=== PATIENT | female | born 1950 | race Caucasian/White ===

== ENCOUNTER 2017-04-16 13:52 | Inpatient (IN) | payer MEDICARE, OTHER ==
--- NOTE | ~2017-04-16 | HP ---
History And Physical [place] [facility] [place]. [address] NAME: NANCY MACKAY : 52 STATUS : ADM IN PAT#: [id number] AGE: 66 ADM/REG DATE : 04/16/17 MR#: [id number] REPORT SERV DATE: 04/16/17 DICTATED BY: JO LAZARO DATE: 04/16/17 REPORT STATUS : Draft TRANSCRIBED BY: MODL DATE: 04/16/17 DATE OF ADMISSION: 04/16/2017 IDENTIFYING DATA: A 66-year-old white female, whose PCP is Dr. Dee Daniels; Pulmonary, Dr. Crowell; Cardiology, Dr. Guallpa; GI, Dr. Strickland. CHIEF COMPLAINT: Shortness of breath. HISTORY OF PRESENT ILLNESS: This history of present illness is obtained by talking with the patient as well as daughter and son-in-law at the bedside as well as with the ER physician, Dr. Elijah Desai, and looking at the ER chart as well as [employer] and [employer]. The patient has had multiple hospitalizations here for a similar problem with hypercapnic hypoxic respiratory failure. Her last two hospitalizations in September 2016 and December 2016 each included ventilator-dependent respiratory failure. The patient has a trilogy that she uses at home any time she sleeps, she also wears oxygen normally 4 liters/minute nasal cannula. Family states this week she went to her PCP. She was diagnosed with a UTI. She was given Macrobid. They state that they were called back today to let them know that this is a resistant organism and they were going to adjust her antibiotic; however, home nurse noticed the patient was more short of breath, more drowsy, and the family agrees and the family had been titrating her oxygen up to a higher FiO2, all the way up to 6 liters. They brought her to the emergency room where she was found to be hypercapnic with respiratory acidosis and hypoxia, and we were asked to see her and care for her. REVIEW OF SYSTEMS: On review of systems, she states she has fever, but it is at most 100, most of the time 99. She claims increased cough and increased sputum production. She states that the sputum is yellow. She also has some atypical chest pain. She has chronic abdominal pain that she states is consistent with gastroparesis. She has chronic nausea. She states she occasionally notices blood when she wipes after a bowel movement. She has some ankle edema. She has some rash occasionally on her face and she states she has been much more nervous lately. She denies sore throat or diarrhea. She has had some vomiting. ALLERGIES: SHE CLAIMS ALLERGIES TO ALL ANTIDEPRESSANTS, BUTTER, PEANUT BUTTER, HALDOL, REGLAN, ROCEPHIN, MORPHINE, PENICILLIN, SULFA, LITHIUM, PROPOXYPHENE, ASPIRIN, AMITRIPTYLINE, FLUOXETINE, AND METHADONE. PAST MEDICAL HISTORY: She denies any history of myocardial infarction or congestive heart failure, stroke, seizure, liver disease, or cancer. She has significant obesity with obesity hypoventilation and obstructive sleep apnea as described above. She has hypertension. She has very severe bipolar disorder with schizoaffective disorder and episodes of psychosis when she does not take her Seroquel. She has the above-described oxygen-dependent COPD. When she was here in December 2015, she had C. difficile colitis treated with an extended course of vancomycin. History And Physical [address] [address] NAME: NANCY MACKAY : 52 STATUS : ADM IN PAT#: [id number] AGE: 66 ADM/REG DATE : 04/16/17 MR#: [id number] REPORT SERV DATE: 04/16/17 DICTATED BY: JO LAZARO DATE: 04/16/17 REPORT STATUS : Draft TRANSCRIBED BY: RUBA DATE: 04/16/17 She has chronic pain in back, neck, and fibromyalgia for which she takes opiates, Cymbalta, and gabapentin. She has a history of neurogenic bladder for which she has a Hart catheter that is chronic and indwelling and changed every three to four weeks. She has diabetes mellitus with gastroparesis, however, her last A1c was 5.9 on 12/22/2016. She has a history of chronic kidney disease, stage III. She has hypothyroidism, anemia of chronic disease, hiatal hernia, and previous peptic ulcer when she was a teenager. She also states that she had a DVT long ago on a pulmonary embolism and she states that when she was in the hospital here last, they put her on Xarelto because of "irregular heart rhythm." HOME MEDICATIONS: Albuterol nebulized and handheld p.r.n.; Xanax 0.5 mg t.i.d.; BuSpar 15 mg b.i.d.; vitamin B12 1000 mcg injected IM every month; Dexilant 60 mg b.i.d.; Voltaren 1% topical gel b.i.d. p.r.n.; Cymbalta 90 mg daily; Urispas 100 mg t.i.d.; Breo Ellipta 100/25 one puff daily; gabapentin 300 mg b.i.d.; Synthroid 88 mcg daily; Linzess 290 mcg daily before breakfast; methenamine 1 g b.i.d.; metoprolol 25 mg b.i.d.; Singulair 10 mg daily; Movantik 25 mg daily; Macrobid 100 mg p.o. b.i.d., started this week for the UTI; Mycostatin topical under skin folds; Percocet 10/325 q.6 hours p.r.n. pain; KCl 10 mEq daily; Phenergan 50 mg p.o. q.4 hours p.r.n. nausea; Seroquel 200 mg at bedtime and 50 mg at noon; Xarelto 20 mg with supper; Requip 3 mg twice a day; VESIcare 10 mg daily; Carafate 1 g a.c. and h.s.; Demadex 20 mg daily; and Incruse Ellipta one puff inhaled daily. PAST SURGICAL HISTORY: She has had cholecystectomy, total abdominal hysterectomy, hernia repair, cataract surgery, left arm fracture repair, and bladder suspension. SOCIAL HISTORY: She has more than 119-iocq-fary history of smoking. She used to smoke four packs per day. She quit 15 years ago. She lives with a daughter and son-in-law who her at bedside. She gets around primarily by transferring from bed to wheelchair, just by pivoting, she does not really walk. FAMILY HISTORY: Mother had both ovarian as well as breast cancer. Father had a subdural hematoma. Siblings with COPD and chronic kidney disease. DIAGNOSTIC DATA: Chest x-ray done as a single portable film in the emergency room today reveals a very shallow inspiratory size with crowding of the lung markings, difficult to tell if there is any actual interstitial infiltrate and it is fairly similar to previous chest x-rays per my interpretation. EKG done today at 1350 hours reveals normal sinus rhythm and a normal EKG to my interpretation. Arterial blood gas done on 50% oxygen BiPAP 16/6 pH 7.29, pCO2 of 75, PO2 of 63, and bicarbonate 34.8. Prior to that point of care, blood gas done here in the emergency room showed pH 7.24, pCO2 of 93, PO2 was less than 60, and bicarbonate 40.2. Sodium 138, potassium 4.1, chloride 100, CO2 is 41, BUN 14, creatinine 1.41, glucose 144, and albumin is 3.4. Her white count is 10.9, hemoglobin 9.1, MCHC is microcytic at 28.6, RDW elevated at 16.7, and platelets 158,000. PHYSICAL EXAMINATION: VITAL SIGNS: Temperature is 98; pulse 90; respirations initially 38, currently 28; blood pressure 130/70; and O2 saturation initially 87% on 4 liters, currently 94% on 50% BiPAP. GENERAL: A well-developed, older female, who appears with moderate respiratory discomfort. HEENT: Head is atraumatic. Pupils are equal, round, and reactive to light. Extraocular History And Physical [address] [address] NAME: NANCY MACKAY : 52 STATUS : ADM IN [facility]#: [id number] AGE: 66 ADM/REG DATE : 04/16/17 MR#: [id number] REPORT SERV DATE: 04/16/17 DICTATED BY: JO LAZARO DATE: 04/16/17 REPORT STATUS : Draft TRANSCRIBED BY: MODL DATE: 04/16/17 motions are intact. No scleral icterus noted. Ears, externally unremarkable. No inflammatory changes noted. Normal hearing. Nose, noninflamed externally. Septum midline. Nares patent. Mouth is moist. I cannot really see the back of her throat because she has BiPAP on. NECK: Supple. No lymph node or thyroid enlargement. The carotids have good pulses. No bruits. LUNGS: Shallow inspiratory size. Prolonged expiratory phase. Reduced air flow. HEART: Regular without gallop, click, murmur, or rub. ABDOMEN: Obese. Bowel sounds positive. Soft, nondistended, and nontender. No masses. No organomegaly. EXTREMITIES: Warm. No clubbing. No cyanosis. No edema. No actively inflamed skin or joints. NEUROLOGIC: She is mildly lethargic, but she arouses to tactile and verbal stimulation and she can hold a fairly good conversation until I stop with stimulation and then she gets a bit drowsy. Her motor strength is 2/5 in all four extremities. No Babinski. No clonus noted. Cranial nerves II through XII are grossly normal. ASSESSMENT: 1. Acute on chronic hypoxic hypercapnic respiratory failure in a patient who underwent ventilator-dependent respiratory failure in September 2016 and December 2016, which were her last two hospitalizations here. 2. Acute exacerbation of oxygen-dependent chronic obstructive pulmonary disease, now on 4- 6 liters at home. 3. Obesity with obstructive sleep apnea and obesity hypoventilation with home trilogy machine and the family now reports that there has been some problem with that machine and they had agent for the company come out and work on it today. 4. Possible urinary tract infection versus asymptomatic bacteria. 5. Bipolar disorder with schizoaffective disorder with history of psychotic manifestations. 6. Possible melena per history. 7. See long past medical history. PLAN: 1. Admit to the IMCU. 2. BiPAP with adjustment upward to 18/6 and a followup blood gas. We will get her on nebulizers and prednisone. We will put her on some empiric antibiotic, which should cover the urinary tract as well and that would be Azactam. We will check stool guaiac. We will rule out an WI. We will check procalcitonin and urine antigens. In the presence of her daughter and son-in-law, she confirms that she still is full code. RSG/MODL Jo Lazaro M.D. History And Physical [address] [address] NAME: NANCY MACKAY : 52 STATUS : ADM IN [facility]#: [id number] AGE: 66 ADM/REG DATE : 04/16/17 MR#: [id number] REPORT SERV DATE: 04/16/17 DICTATED BY: JO LAZARO DATE: 04/16/17 REPORT STATUS : Draft TRANSCRIBED BY: MODL DATE: 04/16/17 / [id number] CC: Nate Granda M.D. Richard Sadowitz, M.D. C. Samuel Ledford, M.D.
--- NOTE | ~2017-04-16 | CN ---
Consultation Report [facility] [address]. [address] NAME: JEANIE YUSUF : 52 STATUS : ADM IN PAT#: [id number] AGE: 66 ADM/REG DATE : 04/16/17 MR#: [id number] REPORT SERV DATE: 04/19/17 DICTATED BY: BRYCE PADRON DATE: 04/19/17 REPORT STATUS : Draft TRANSCRIBED BY: MODL DATE: 04/19/17 CONSULTATION DATE OF CONSULTATION: 04/19/2017 CHIEF COMPLAINT: Respiratory failure. HISTORY OF PRESENT ILLNESS: Mrs. Jeanie Yusuf is a chronically ill 66-year-old white female with a past medical history significant for full COPD, chronic respiratory failure supported on home trilogy, and obesity hypoventilation, who presents to [facility] Emergency Room with complaints of worsening pulmonary status. It should be noted that Mrs. Yusuf was hospitalized as recently as December of this year when she was intubated for respiratory failure. Mrs. Yusuf is followed by Dr. Crowell for her outpatient pulmonary needs. She is on home oxygen at 3 to 4 L continuously. She is on a pulmonary regimen of albuterol, Breo Ellipta, Singulair, and Incruse Ellipta of which she is reportedly compliant. The patient quit smoking approximately 15 years ago. She smoked at least four packs a day for a period of 25 years. She does have known sleep apnea. She does have a home trilogy unit of which she is compliant by report. She is unable to quantify her exercise tolerance today. Again, the patient was hospitalized as recently as December of this year when she had an episode of hypoxemic hypercapnic respiratory failure, which resulted in intubation. She eventually improved and transitioned to home. More recently, she had been diagnosed with a urinary tract infection and was placed on antibiotics. She did have a visit from a home nurse which found the patient dyspneic and lethargic. During this time, she did have increasing oxygen requirements. Due to the concerns of her worsening pulmonary status, she was brought to [facility]'s emergency room. Upon arrival, she was found to have an oxygenation of 87% on 4 L. She had a systolic blood pressure of 130. Initial white blood cell count was 10,900. Her creatinine was 1.41. She did undergo arterial blood gas sampling which revealed a pH 7.24, PaCO2 of 93, PaO2 of less than 60, and a bicarb of 40.2. She was given IV Solu-Medrol, placed on antibiotics, and did receive BiPAP therapy with some improvement in her hypercapnia. She has had some increasing oxygen requirements since her transfer to the [facility]. For the aforementioned reasons, she has been referred to the Pulmonary Service for further assessment. Currently, Mrs. Yusuf is awake and mentating appropriately. She is supported on 15 L of supplemental oxygen with her sats in the low 90s. She denies any worsening, cough, or productive sputum. She does have some mild wheezing in her chest. She has had previous pneumonias. She does carry a diagnosis of COPD. The patient does have known diastolic dysfunction as well as some mild tricuspid regurg. She currently denies any murmurs, angina, or palpitations. In regard to constitutional Consultation Report [place] [id number] [facility] [place]. [address] NAME: JEANIE YUSUF : 52 STATUS : ADM IN [facility]#: [id number] AGE: 66 ADM/REG DATE : 04/16/17 MR#: [id number] REPORT SERV DATE: 04/19/17 DICTATED BY: BRYCE PADRON DATE: 04/19/17 REPORT STATUS : Draft TRANSCRIBED BY: RUBA DATE: 04/19/17 symptoms, she currently denies fever, chills, nausea, vomiting, chest pain, abdominal pain, or edema. PAST MEDICAL HISTORY: 1. Chronic hypoxemic hypercapnic respiratory failure, on home trilogy. 2. COPD. 3. Obesity hypoventilation syndrome. 4. Obstructive sleep apnea. 5. Narcotic dependence. 6. Anxiety. 7. Hypertension. 8. Bipolar disorder. 9. Schizoaffective disorder. 10.Fibromyalgia. 11.Diabetes mellitus. 12.Gastroparesis. 13.Restless legs syndrome. 14.Hypothyroidism. 15.Chronic kidney disease. PAST SURGICAL HISTORY: 1. Cholecystectomy. 2. Total abdominal hysterectomy. 3. Hernia repair. 4. Cataract surgery. 5. ORIF of left arm fracture. 6. Bladder surgery. FAMILY HISTORY: The patient denies family history of lung disease. SOCIAL HISTORY: The patient is . She has two children. TOBACCO/ALCOHOL: As previously mentioned, the patient quit smoking over 15 years ago, prior to this time, she smoked approximately four packs a day for a period of 25 years. She denies any recent alcohol or illicit drug use. MEDICATIONS: 1. Albuterol. 2. Xanax 0.5 mg. 3. Buspirone 15 mg. 4. Dexilant 60 mg. 5. Duloxetine 30 mg. 6. Breo Ellipta. 7. Gabapentin 300 mg. 8. Levothyroxine 88 mcg. Consultation Report [address] [address] NAME: JEANIE YUSUF : 52 STATUS : ADM IN PAT#: [id number] AGE: 66 ADM/REG DATE : 04/16/17 MR#: [id number] REPORT SERV DATE: 04/19/17 DICTATED BY: BRYCE PADRON DATE: 04/19/17 REPORT STATUS : Draft TRANSCRIBED BY: RUBA DATE: 04/19/17 9. Metoprolol 25 mg. 10.Montelukast 10 mg. 11.Oxycodone 10/325. 12.Potassium chloride 10 mEq. 13.Phenergan 25 mg. 14.Seroquel 200 mg. 15.Xarelto 20 mg. 16.Ropinirole 3 mg. 17.Torsemide 20 mg. 18.Incruse Ellipta. ALLERGIES: THE PATIENT HAS AN EXTENSIVE ALLERGY LIST INCLUDING CEFTRIAXONE, PENICILLINS, AND BACTRIM. PLEASE REVIEW THE CHART FOR MORE COMPLETE LIST OF ALLERGIES. REVIEW. REVIEW OF SYSTEMS: A complete review of systems was performed with pertinent positives and negatives contained within the body of the HPI. PHYSICAL EXAMINATION: VITAL SIGNS: Blood pressure is 134/60, heart rate 86, T-max is 99.2, respiratory rate is 28, SpO2 is 93% on 15 L nasal cannula. GENERAL: Mrs. Jeanie Yusuf is a chronically ill-appearing, 66-year-old white female, who is not currently exhibiting any signs of acute distress. SKIN: With appropriate texture and turgor. HEENT: Head, skull is normocephalic, atraumatic. Eyes, sclerae anicteric. Ears, auricles and tragus without pain to palpation. Nose, bilateral nasal patency. Throat, dentition noted. NECK: With significant redundant tissue. THORAX/LUNGS: Few scattered rhonchi and wheezes. CARDIOVASCULAR: Regular rate and rhythm. ABDOMEN: Soft. PERIPHERAL VASCULAR: No edema. MUSCULOSKELETAL: Full AROM and PROM in all joints. NEUROLOGIC: Cranial nerves 2 through 12 grossly intact. PSYCHIATRIC: The patient demonstrates good judgment and insight. ACCESSORY DATA: Reveals creatinine 1.3. BNP is 225.2. Arterial blood gas on a trilogy, pH 7.38, PaCO2 of 62, PaO2 of 72, bicarb of 36.1. White blood cell count of 7600, hemoglobin and hematocrit are 8.2 and 28.5. Procalcitonin is negative at 0.05. Chest x-ray reveals a possible right infiltrate versus edema. Echocardiogram in 2016 demonstrates a left ventricular ejection fraction estimated to be in the 60s. There was some mild diastolic dysfunction with mild left atrial dilatation. There Consultation Report [address] [place]. [address] NAME: JEANIE YUSUF : 52 STATUS : ADM IN [facility]#: [id number] AGE: 66 ADM/REG DATE : 04/16/17 MR#: [id number] REPORT SERV DATE: 04/19/17 DICTATED BY: BRYCE PADRON DATE: 04/19/17 REPORT STATUS : Draft TRANSCRIBED BY: RUBA DATE: 04/19/17 are signs consistent with mild tricuspid regurg with an estimated right systolic ventricular pressure of 50. IMPRESSION: 1. Acute on chronic hypoxemic, hypercapnic respiratory failure. 2. Acute exacerbation of chronic obstructive pulmonary disease. 3. Obesity hypoventilation syndrome/obstructive sleep apnea. PLAN: 1. At this time, the patient is currently being supported with her home trilogy with some improvement in her hypercapnia. She does have some worsening hypoxemia, which may be worsened due to her current volume status. We will have a discussion with the primary team about initiating some diuretics. We will write for Vapotherm should she have worsening oxygenation needs. The patient does wish to be a full code. 2. In regard to the patient's acute exacerbation of COPD, we will place her on a full armamentarium of nebulized medications as well as provide her with IV steroids. The aforementioned impression and plan has been discussed with Dr. Solis, who will follow further recommendations. We thank you for this consult and look forward to participating in the care of needs of Mrs. Jeanie Yusuf. GBS/MODL Bryce aPdron PA-C / [id number] CC: Nate Granda M.D.
--- NOTE | ~2017-04-16 | DS ---
Discharge Summary [facility] [address] [facility] [place]. [address] NAME: NANCY MACKAY : 52 STATUS : ADM IN [facility]#: [id number] AGE: 66 ADM/REG DATE : 04/16/17 MR#: [id number] REPORT SERV DATE: 04/23/17 DICTATED BY: Maricel MCCORMICK DATE: 04/23/17 REPORT STATUS : Draft TRANSCRIBED BY: RUBA DATE: 04/23/17 ADMISSION DATE: 04/16/2017 DISCHARGE DATE: 04/23/2017 DIAGNOSES AT DISCHARGE: Mrzip-it-faypfxf respiratory failure with hypoxia and hypercapnia, sleep apnea, obesity hypoventilation syndrome, end-stage chronic obstructive pulmonary disease, morbid obesity, bipolar disorder, chronic pain syndrome, insulin-requiring diabetes. CONSULTS: Pulmonology. PROCEDURES: None. BRIEF SUMMARY: A 66-year-old female with end-stage lung disease and long-standing bipolar disorder, and was admitted with recurrent respiratory failure. The patient was placed in intermediate care with intermittent BiPAP support. The patient was placed on aggressive pulmonary toilet and aggressive bronchodilator therapy. She slowly improved to her baseline and was able to tolerate her home trilogy settings. The patient was felt stable to discharge home on 04/23/2017 on her current medical therapy. The patient will not require antimicrobial therapy at this time. Lab work has been stable including a discharge BUN of 27 and a discharge creatinine of 1.53. 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 The patient will continue to have home health with physical therapy and RN to evaluate and treat. She will continue with her current home O2 and continue with her current trilogy with no adjustment in settings. Further recommendations pending outpatient followup. Of note, greater than 40 minutes was required to financial counselor the patient, prepare discharge forms, reconcile discharge medications. DICTATED BY: Maricel Mccormick M.D. HIXiang/RUBA Maricel Mccormick M.D. / [id number] CC: Maricel Mccormick M.D.
[~2017-04-16 13:52] MED LIST: *HOMEMEDS; ACIDOPHILU1 PO; ADVAIR INH; ADVAIR100 INH; ADVAIR115P INH; ADVAIR250 INH; AFRIN15 NAS; ALAVERT10 MG PO; ALBUTEROL5 INH; AMARYL1 MG PO; ATEN50 PO; AUG875 PO; AZO STANDARD PO; Advair Diskus INH; B-125000 MCG SL; B121000P IM; B121000P SC; BACLOFEN20 MG PO; BETAMETH VAL0.12 TOP; BISR PR; BROVANA15 MCG INH; BUTRANS1 EACH TOP; C1; C1 PO; C2 PO; C25 PO; C5 PO; CARD120 PO; CARDCD120 PO; CIP5 PO; CLARIT10 PO; COREG12 PO; COREG3 PO; COREG6 PO; COUMADIN3 MG PO; COUMADIN4 MG PO; CRESTOR10 PO; CYMBALTA30 PO; CYMBALTA60 PO; DALIRESP500 MCG PO; DEMA100 PO; DEMA20 PO; DEPAK250ER PO; DEPAKOT250 PO; DEPAKOT500 PO; DETROLLA4 PO; DEXILANT; DEXILANT PO; DIAM250B PO; DITRO5 PO; DOC-Q-LACE PO; DSS PO; DULERA 200 MCG/13 GM INH; DUONEB INH; DURA50 TOP; ELIQUIS 5 MG TAB5 MG PO; ENABLEX15 PO; ENABLEX7.5 PO; ENDOCET1 TA3 PO; ENDOCET1 TAB PO; FERROUS GLUCONATE PO; FLAVOXATE100 MG OR; FLAVOXATE100 MG PO; FLONASE NAS; FLORASTOR250 MG PO; FOLIC PO; GLYCOLAX; HIPREX1 GM OR; HIPREX1 GM PO; HUMIBID1200 MG PO; HYDROCORTISO2.5 % RE; INCRUSE ELLIPTA INH; IRON325 MG PO; JANTOVEN4 MG PO; K-TABS10 MEQ PO; KAPIDEX60 MG PO; KDUR10 PO; KLONO1 PO; KLOR-CON 1010 MEQ PO; KLOR-CON/EF25 MEQ PO; LEVAQUIN750 MG PO; LEVOTHROID25 MCG PO; LEVOTHYROXIN50 MCG PO; LEVOTHYROXIN88 MCG PO; LIDODERM T; LIDODERM TOP; LINZESS 290 M290 MCG PO; LIOR10 PO; LOM PO; LOP25 PO; MACROBID PO; MAGOX4 PO; MAXIMUM D3 PO; MEDROL4 PO; MELA3 PO; MELATONIN1 M1 PO; MELATONIN5 M1 PO; METHENAM HIP1 GM PO; MICRO-K10 MEQ PO; MIRALAXPKT PO; MIRAPEX0.75 MG PO; MIRAPEX1 MG PO; MIRAPEX250 PO; MOMETASONE0.11 EX; MOMETASONE0.11 TOP; MONUROL POWDER 33 GM PO; MUCINEX1200 MG PO; MULTIPLE VIT PO; MVI PO; MYCOSCROI TOP; NASONEX NAS; NEUPRO 2MG2 MG/24 HR TOP; NEUR100 PO; NEUR300 PO; NEUR400 PO; NEUR600 PO; NEXIUM40 PO; NITROQUICK0.4 MG SL; NITROSTAT0.4 MG PO; NITROSTAT0.4 MG SL; NTG150 SL; NYSTOP100000 MG TOP; OCEAN NAS; OXYCOD PO; OXYCON10 PO; P10 PO; PCET PO; PERCOCET1 TA2 PO; PERCOCET1 TA3 PO; PERCOCET1 TA4 PO; PHOSLO PO; PR25 PO; PRAMIPEXOLE PO; PRAVACHOL80 MG PO; PREV30 PO; PRILO PO; PRIN10 PO; PROAIR HFA INH; PROBIOTIC PO; PROVENTSOL INH; PROVHFA INH; PULRESP.5 INH; PULRESP1 INH; PYR200 PO; QUESTRAN4 GM PO; RANITIDINE300 MG PO; REG PO; REQUIP1 PO; REQUIP3 PO; REQUIP5 PO; ROXICET1 TAB PO; SENTAB PO; SEROQUEL1C PO; SEROQUEL200 MG PO; SEROQUEL25 PO; SEROQUEL300 MG PO; SEROQUEL50 MG PO; SILVADENE1 % TOP; SINGULAIR1 PO; SLOWMAG PO; SPIRIVA INH; SPIRIVA RESPIMAT INH; SSD 1% TOP; STARLIX60 PO; STOOL SOFTEN240 MG PO; SUCR PO; SULCRAFATE; SURFAK PO; SYN.025B PO; SYN.05 PO; SYN075 PO; SYN88 PO; TESS PO; TETRACYCLINE500 MG OR; TRADJENTA5 MG PO; TRAZ100 PO; URISPAS 100 MG100 MG OR; URISPAS 100 MG100 MG PO; URISPAS100 MG OR; VANCOCIN HCL125 MG PO; VANTIN200 MG PO; VENTOLIN HFA INH; VESICARE10 MG PO; VIST50 PO; VISTARIL50 MG OR; VIT D PO; VITAMIN B-121000 MC1 IM; VITAMIN D; VOLTAREN1 % TOP; WARFARIN; X25 PO; X5 PO; XANAX1 MG PO; XIFAXAN550 MG PO; XOPENEX0.63 MG INH; Z-PAK PO; ZANTAC300 MG PO; ZITH250 PO; ZOFRAN4 PO; ZOVI800 PO; [UNRECOGNIZED DRUG - OTHER]; [UNRECOGNIZED DRUG - OTHER]; [UNRECOGNIZED DRUG - OTHER] PO; [UNRECOGNIZED DRUG - REMARK] PO
[2017-04-16 14:50] LABS: BASOPHILS 0.1 %; BASOPHILS ABSOLUTE 0.01 10/3/uL (0.0-0.16); EOSINOPHILS 0 %; ER CBC TAT 0 Hrs 05 Mins; HEMATOCRIT 31.8 % (36.0-48.0); HEMOGLOBIN 9.1 g/dL (12.0-16.0); IMMATURE GRANULOCYTES 0.3 %; IMMATURE GRANULOCYTES ABSOLUTE 0.03 10/3/uL (0.0-0.11); LYMPHOCYTES 5.1 %; LYMPHOCYTES ABSOLUTE 0.55 10/3/uL (0.67-4.30); MEAN CORPUS HGB CONC 28.6 g/dL (32.0-36.0); MEAN CORPUSCULAR VOLUME 90.9 fL (80-100); MEAN PLATELET VOLUME 10.8 fL (9.2-13.0); MONOCYTES ABSOLUTE 0.65 10/3/uL (0.21-1.20); NEUTROPHILS 88.5 %; NEUTROPHILS ABSOLUTE 9.62 10/3/uL (2.02-8.40); PLATELET COUNT 158 10/3/uL (150-400); RBC DISTRIBUTION WIDTH 16.7 % (12.0-16.0); WHITE BLOOD CELLS 10.9 10/3/uL (4.5-10.5)
[2017-04-16 14:51] LABS: MANUAL DIFF NO %
[2017-04-16 15:07] LABS: ALBUMIN 3.4 G/DL (3.5-5.0); CALCIUM, SERUM 9.2 MG/DL (8.5-10.4); CHLORIDE, SERUM 100 MMOL/L (96-112); CREATININE 1.41 MG/DL (0.55-1.02); GFR AFRICAN AMERICAN 45 ML/MIN (>=60); GFR NON AFRICAN AMERICAN 39 ML/MIN (>=60); GLUCOSE, SERUM 144 MG/DL (60-99); POTASSIUM, SERUM 4.1 MMOL/L (3.5-5.3); SGOT(AST) 12 U/L (5-40); SGPT(ALT) 20 U/L (5-65); SODIUM, SERUM 138 MMOL/L (135-148); TOTAL BILIRUBIN 0.4 MG/DL (0-1.2)
[2017-04-16 15:10] LABS: A/G RATIO 0.9 (0.7-1.9); ALKALINE PHOSPHATASE 76 U/L (45-117); BUN (BLOOD UREA NITROGEN) 14 MG/DL (6-23); CO2 (CARBON DIOXIDE) 41 MMOL/L (24-34); GLOBULIN 3.7 G/DL (2.5-4.1); TOTAL PROTEIN 7.1 G/DL (6.0-8.5)
[2017-04-16] MEDS ORDERED: INCRUSE ELLI62.5 MCG INH (16:37)
[2017-04-16] MEDS ORDERED: REQUIP3 PO (16:38)
[2017-04-16] MEDS ORDERED: LINZESS 290 M290 MCG PO (16:38)
[2017-04-16] MEDS ORDERED: BUSPAR15 M1 PO (16:38)
[2017-04-16] MEDS ORDERED: NEUR300 PO (16:39)
[2017-04-16] MEDS ORDERED: VESICARE10 MG PO (16:39)
[2017-04-16] MEDS ORDERED: LOP25 PO (16:39)
[2017-04-16] MEDS ORDERED: BREO ELLIPTA INH (16:40)
[2017-04-16] MEDS ORDERED: PR25 PO (16:40)
[2017-04-16] MEDS ORDERED: SEROQUEL50 MG PO (16:41)
[2017-04-16] MEDS ORDERED: SUCR PO (16:41)
[2017-04-16] MEDS ORDERED: SEROQUEL200 MG PO (16:41)
[2017-04-16] MEDS ORDERED: X5 PO (16:41)
[2017-04-16] MEDS ORDERED: URISPAS 100 MG100 MG PO (16:42)
[2017-04-16] MEDS ORDERED: SYN88 PO (16:42)
[2017-04-16] MEDS ORDERED: METHENAM HIP1 GM PO (16:42)
[2017-04-16] MEDS ORDERED: MOVANTIK25 MG PO (16:42)
[2017-04-16] MEDS ORDERED: VOLTAREN1 % TOP (16:43)
[2017-04-16] MEDS ORDERED: B121000P IM (16:43)
[2017-04-16] MEDS ORDERED: MYCOSCROI TOP (16:43)
[2017-04-16] MEDS ORDERED: ALBUTEROL0.083 % INH (16:43)
[2017-04-16] MEDS ORDERED: SINGULAIR1 PO (16:44)
[2017-04-16] MEDS ORDERED: XARELTO20 MG PO (16:44)
[2017-04-16] MEDS ORDERED: KAPIDEX60 MG PO (16:44)
[2017-04-16] MEDS ORDERED: PROAIR HFA INH (16:44)
[2017-04-16] MEDS ORDERED: K-TABS10 MEQ PO (16:44)
[2017-04-16] MEDS ORDERED: CYMBALTA30 PO (16:45)
[2017-04-16] MEDS ORDERED: DEMA20 PO (16:45)
[2017-04-16] MEDS ORDERED: PERCOCET 10/3251 TAB PO (16:45)
[2017-04-16] MEDS ORDERED: MACROBID PO (16:45)
[2017-04-16 16:55] LABS: BE (BASE EXCESS) 6.7 MEQ/L (0 +/- 2.5); CARBOXYHEMOGLOBIN 1.3 % (0-3); HCO3 (ACTUAL BICARBONATE) 34.8 MEQ/L (23-27); HEMOBLOGIN CONTENT 9.2 G/DL (12-16); INSTRUMENT SERIAL # 8083; METHEMOGLOBIN 0.3 % (0-3); O2 CONTENT 11.5 VOL% (18-24); OPERATOR ID 14335; PCO2 (CO2 TENSION) 75 MMHG (35-45); PO2 (O2 TENSION) 63 MMHG (79-93); SAMPLE Arterial; pH 7.29 (7.37-7.43)
[2017-04-16 16:56] LABS: ALLENS TEST Pos
[2017-04-17 03:21] LABS: ALLENS TEST Pos; BE (BASE EXCESS) 6.3 MEQ/L (0 +/- 2.5); BIPAP 18/6 cm.H2O; HCO3 (ACTUAL BICARBONATE) 33.7 MEQ/L (23-27); HEMOBLOGIN CONTENT 10.3 G/DL (12-16); INSTRUMENT SERIAL # 8083; METHEMOGLOBIN 0.2 % (0-3); OPERATOR ID 16503; PCO2 (CO2 TENSION) 65 MMHG (35-45); PO2 (O2 TENSION) 94 MMHG (79-93); SAMPLE Arterial; pH 7.33 (7.37-7.43)
[2017-04-17 06:24] LABS: BASOPHILS 0 %; EOSINOPHILS 0 %; IMMATURE GRANULOCYTES 0.3 %; IMMATURE GRANULOCYTES ABSOLUTE 0.02 10/3/uL (0.0-0.11); LYMPHOCYTES 6.1 %; MEAN CORPUS HGB CONC 28.9 g/dL (32.0-36.0); MEAN CORPUSCULAR HEMOGLOB 25.6 pg (26.0-34.0); MEAN CORPUSCULAR VOLUME 88.5 fL (80-100); MONOCYTES 3.7 %; MONOCYTES ABSOLUTE 0.24 10/3/uL (0.21-1.20); NEUTROPHILS 89.9 %; NEUTROPHILS ABSOLUTE 5.88 10/3/uL (2.02-8.40); PLATELET COUNT 138 10/3/uL (150-400); RBC DISTRIBUTION WIDTH 16.4 % (12.0-16.0); RED CELL COUNT 3.13 10/6/uL (4.0-5.6)
[2017-04-17 06:29] LABS: HEMATOCRIT 27.7 % (36.0-48.0); MANUAL DIFF NO %; WHITE BLOOD CELLS 6.5 10/3/uL (4.5-10.5)
[2017-04-17 06:39] LABS: TROPONIN I <0.02 NG/ML (<0.05)
[2017-04-17 06:55] LABS: B NATRIURETIC PEPTIDE (BNP) 225.2 PG/ML (< 100.0)
[2017-04-17 08:19] LABS: PROCALCITONIN 0.05 ng/mL (<0.5)
[2017-04-18 07:12] LABS: BASOPHILS 0.2 %; BASOPHILS ABSOLUTE 0.01 10/3/uL (0.0-0.16); EOSINOPHILS 0.2 %; EOSINOPHILS ABSOLUTE 0.01 10/3/uL (0.0-0.53); HEMATOCRIT 27.3 % (36.0-48.0); HEMOGLOBIN 7.9 g/dL (12.0-16.0); IMMATURE GRANULOCYTES 0.2 %; IMMATURE GRANULOCYTES ABSOLUTE 0.01 10/3/uL (0.0-0.11); LYMPHOCYTES 16.2 %; LYMPHOCYTES ABSOLUTE 0.92 10/3/uL (0.67-4.30); MEAN CORPUS HGB CONC 28.9 g/dL (32.0-36.0); MEAN CORPUSCULAR HEMOGLOB 25.9 pg (26.0-34.0); MEAN CORPUSCULAR VOLUME 89.5 fL (80-100); MEAN PLATELET VOLUME 10.4 fL (9.2-13.0); MONOCYTES 11.4 %; MONOCYTES ABSOLUTE 0.65 10/3/uL (0.21-1.20); NEUTROPHILS 71.8 %; NEUTROPHILS ABSOLUTE 4.09 10/3/uL (2.02-8.40); PLATELET COUNT 157 10/3/uL (150-400); RBC DISTRIBUTION WIDTH 16.6 % (12.0-16.0); RED CELL COUNT 3.05 10/6/uL (4.0-5.6); WHITE BLOOD CELLS 5.7 10/3/uL (4.5-10.5)
[2017-04-18 07:22] LABS: MANUAL DIFF NO %
[2017-04-18 07:31] LABS: ALBUMIN 2.8 G/DL (3.5-5.0); CALCIUM, SERUM 10.1 MG/DL (8.5-10.4); CHLORIDE, SERUM 100 MMOL/L (96-112); CREATININE 1.44 MG/DL (0.55-1.02); GFR AFRICAN AMERICAN 44 ML/MIN (>=60); GFR NON AFRICAN AMERICAN 38 ML/MIN (>=60); PHOSPHORUS, SERUM 3.9 MG/DL (2.5-4.5); POTASSIUM, SERUM 3.6 MMOL/L (3.5-5.3); SODIUM, SERUM 144 MMOL/L (135-148)
[2017-04-18 07:32] LABS: BUN (BLOOD UREA NITROGEN) 24 MG/DL (6-23); CO2 (CARBON DIOXIDE) 43 MMOL/L (24-34); GLUCOSE, SERUM 89 MG/DL (60-99)
[2017-04-18 13:03] LABS: GLYCOHEMOGLOBIN (HbA1c) 5.5 % (4.7-6.1)
[2017-04-19 04:41] LABS: BASOPHILS 0.1 %; BASOPHILS ABSOLUTE 0.01 10/3/uL (0.0-0.16); EOSINOPHILS 0.4 %; EOSINOPHILS ABSOLUTE 0.03 10/3/uL (0.0-0.53); HEMATOCRIT 28.5 % (36.0-48.0); HEMOGLOBIN 8.2 g/dL (12.0-16.0); IMMATURE GRANULOCYTES 0.1 %; IMMATURE GRANULOCYTES ABSOLUTE 0.01 10/3/uL (0.0-0.11); LYMPHOCYTES 12.4 %; LYMPHOCYTES ABSOLUTE 0.94 10/3/uL (0.67-4.30); MEAN CORPUS HGB CONC 28.8 g/dL (32.0-36.0); MEAN CORPUSCULAR HEMOGLOB 25.9 pg (26.0-34.0); MEAN CORPUSCULAR VOLUME 89.9 fL (80-100); MEAN PLATELET VOLUME 10.1 fL (9.2-13.0); MONOCYTES 13.9 %; MONOCYTES ABSOLUTE 1.05 10/3/uL (0.21-1.20); NEUTROPHILS 73.1 %; NEUTROPHILS ABSOLUTE 5.53 10/3/uL (2.02-8.40); PLATELET COUNT 161 10/3/uL (150-400); RED CELL COUNT 3.17 10/6/uL (4.0-5.6); WHITE BLOOD CELLS 7.6 10/3/uL (4.5-10.5)
[2017-04-19 04:44] LABS: MANUAL DIFF NO %
[2017-04-19 04:57] LABS: ALBUMIN 2.9 G/DL (3.5-5.0); BUN (BLOOD UREA NITROGEN) 23 MG/DL (6-23); CALCIUM, SERUM 10.2 MG/DL (8.5-10.4); CHLORIDE, SERUM 101 MMOL/L (96-112); CO2 (CARBON DIOXIDE) 39 MMOL/L (24-34); GFR AFRICAN AMERICAN 50 ML/MIN (>=60); GFR NON AFRICAN AMERICAN 43 ML/MIN (>=60); GLUCOSE, SERUM 77 MG/DL (60-99); POTASSIUM, SERUM 3.9 MMOL/L (3.5-5.3); SODIUM, SERUM 144 MMOL/L (135-148)
[2017-04-19 05:03] LABS: PHOSPHORUS, SERUM 2.6 MG/DL (2.5-4.5)
[2017-04-19 11:40] LABS: ALLENS TEST Pos; BE (BASE EXCESS) 9.4 MEQ/L (0 +/- 2.5); CARBOXYHEMOGLOBIN 0.9 % (0-3); DEVICE TRILOGY; HCO3 (ACTUAL BICARBONATE) 36.1 MEQ/L (23-27); HEMOBLOGIN CONTENT 9.6 G/DL (12-16); INSTRUMENT SERIAL # 8083; METHEMOGLOBIN 0.2 % (0-3); O2 CONTENT 12.5 VOL% (18-24); OPERATOR ID 18801; PCO2 (CO2 TENSION) 62 MMHG (35-45); PO2 (O2 TENSION) 72 MMHG (79-93); SAMPLE Arterial; pH 7.38 (7.37-7.43)
[2017-04-20 05:07] LABS: BASOPHILS 0.1 %; BASOPHILS ABSOLUTE 0.01 10/3/uL (0.0-0.16); EOSINOPHILS 0.1 %; EOSINOPHILS ABSOLUTE 0.01 10/3/uL (0.0-0.53); HEMATOCRIT 31.2 % (36.0-48.0); HEMOGLOBIN 9.5 g/dL (12.0-16.0); IMMATURE GRANULOCYTES 0.1 %; IMMATURE GRANULOCYTES ABSOLUTE 0.01 10/3/uL (0.0-0.11); LYMPHOCYTES 13.6 %; LYMPHOCYTES ABSOLUTE 1.01 10/3/uL (0.67-4.30); MEAN PLATELET VOLUME 10.2 fL (9.2-13.0); MONOCYTES ABSOLUTE 0.97 10/3/uL (0.21-1.20); NEUTROPHILS 73.1 %; NEUTROPHILS ABSOLUTE 5.43 10/3/uL (2.02-8.40); PLATELET COUNT 200 10/3/uL (150-400); RED CELL COUNT 3.66 10/6/uL (4.0-5.6); WHITE BLOOD CELLS 7.4 10/3/uL (4.5-10.5)
[2017-04-20 05:08] LABS: MANUAL DIFF NO %; MEAN CORPUS HGB CONC 30.4 g/dL (32.0-36.0); MEAN CORPUSCULAR VOLUME 85.2 fL (80-100)
[2017-04-20 05:15] LABS: BUN (BLOOD UREA NITROGEN) 24 MG/DL (6-23); CHLORIDE, SERUM 97 MMOL/L (96-112); CO2 (CARBON DIOXIDE) 38 MMOL/L (24-34); CREATININE 1.39 MG/DL (0.55-1.02); GFR AFRICAN AMERICAN 46 ML/MIN (>=60); GFR NON AFRICAN AMERICAN 40 ML/MIN (>=60); GLUCOSE, SERUM 88 MG/DL (60-99); PHOSPHORUS, SERUM 2.7 MG/DL (2.5-4.5); POTASSIUM, SERUM 3.6 MMOL/L (3.5-5.3); SODIUM, SERUM 142 MMOL/L (135-148)
[2017-04-20 08:53] LABS: ALLENS TEST Pos; BE (BASE EXCESS) 12.5 MEQ/L (0 +/- 2.5); HCO3 (ACTUAL BICARBONATE) 38.8 MEQ/L (23-27); HEMOBLOGIN CONTENT 11.3 G/DL (12-16); INSTRUMENT SERIAL # 8083; METHEMOGLOBIN 0.2 % (0-3); O2 CONTENT 14.5 VOL% (18-24); OPERATOR ID 35091; PCO2 (CO2 TENSION) 59 MMHG (35-45); PO2 (O2 TENSION) 65 MMHG (79-93); SAMPLE Arterial; pH 7.44 (7.37-7.43)
[2017-04-21 04:33] LABS: CALCIUM, SERUM 10.9 MG/DL (8.5-10.4); CHLORIDE, SERUM 99 MMOL/L (96-112); CO2 (CARBON DIOXIDE) 34 MMOL/L (24-34); GFR AFRICAN AMERICAN 39 ML/MIN (>=60); GFR NON AFRICAN AMERICAN 33 ML/MIN (>=60); GLUCOSE, SERUM 87 MG/DL (60-99); POTASSIUM, SERUM 3.5 MMOL/L (3.5-5.3); SODIUM, SERUM 143 MMOL/L (135-148)
[2017-04-21 04:40] LABS: BUN (BLOOD UREA NITROGEN) 29 MG/DL (6-23)
[2017-04-22 04:53] LABS: BASOPHILS 0.1 %; BASOPHILS ABSOLUTE 0.01 10/3/uL (0.0-0.16); EOSINOPHILS 0.6 %; EOSINOPHILS ABSOLUTE 0.05 10/3/uL (0.0-0.53); HEMOGLOBIN 10.6 g/dL (12.0-16.0); IMMATURE GRANULOCYTES 0.1 %; IMMATURE GRANULOCYTES ABSOLUTE 0.01 10/3/uL (0.0-0.11); LYMPHOCYTES 22.7 %; LYMPHOCYTES ABSOLUTE 1.77 10/3/uL (0.67-4.30); MEAN CORPUS HGB CONC 30.8 g/dL (32.0-36.0); MEAN CORPUSCULAR HEMOGLOB 25.9 pg (26.0-34.0); MEAN CORPUSCULAR VOLUME 83.9 fL (80-100); MEAN PLATELET VOLUME 10.5 fL (9.2-13.0); MONOCYTES 10.1 %; MONOCYTES ABSOLUTE 0.79 10/3/uL (0.21-1.20); NEUTROPHILS 66.4 %; NEUTROPHILS ABSOLUTE 5.18 10/3/uL (2.02-8.40); RBC DISTRIBUTION WIDTH 15.8 % (12.0-16.0); WHITE BLOOD CELLS 7.8 10/3/uL (4.5-10.5)
[2017-04-22 04:54] LABS: HEMATOCRIT 34.4 % (36.0-48.0); MANUAL DIFF NO %; PLATELET COUNT 265 10/3/uL (150-400)
[2017-04-22 05:15] LABS: BUN (BLOOD UREA NITROGEN) 31 MG/DL (6-23); CALCIUM, SERUM 10.2 MG/DL (8.5-10.4); CHLORIDE, SERUM 97 MMOL/L (96-112); CO2 (CARBON DIOXIDE) 35 MMOL/L (24-34); CREATININE 1.64 MG/DL (0.55-1.02); GFR AFRICAN AMERICAN 38 ML/MIN (>=60); GFR NON AFRICAN AMERICAN 32 ML/MIN (>=60); PHOSPHORUS, SERUM 3.4 MG/DL (2.5-4.5); SODIUM, SERUM 139 MMOL/L (135-148)
[2017-04-22 05:16] LABS: GLUCOSE, SERUM 67 MG/DL (60-99)
[2017-04-23 08:22] LABS: CALCIUM, SERUM 10.3 MG/DL (8.5-10.4); CHLORIDE, SERUM 99 MMOL/L (96-112); CO2 (CARBON DIOXIDE) 37 MMOL/L (24-34); CREATININE 1.53 MG/DL (0.55-1.02); GFR AFRICAN AMERICAN 41 ML/MIN (>=60); GFR NON AFRICAN AMERICAN 35 ML/MIN (>=60); SODIUM, SERUM 140 MMOL/L (135-148)
[2017-04-23 08:23] LABS: BUN (BLOOD UREA NITROGEN) 27 MG/DL (6-23); GLUCOSE, SERUM 95 MG/DL (60-99); POTASSIUM, SERUM 4.2 MMOL/L (3.5-5.3)
== END 2017-04-23 17:55 | disposition home health service (06) | DRG 189 ==
LOC: ER 13:52 → IMCU 19:33 → 6NO 04-22 17:45
PROVIDERS: Hospitalist; Internal Medicine
PROC: 5A09457 Assistance with Respiratory Ventilation, 24-96 Consecutive Hours, Continuous Positive Airway Pressure (ICD-10-PCS; principal; 2017-04-16)
DX: J96.21 Acute and chronic respiratory failure with hypoxia (principal); E11.43 Type 2 diabetes mellitus with diabetic autonomic (poly)neuropathy; E11.22 Type 2 diabetes mellitus with diabetic chronic kidney disease; K31.84 Gastroparesis; E66.2 Morbid (severe) obesity with alveolar hypoventilation; Z99.81 Dependence on supplemental oxygen; F11.20 Opioid dependence, uncomplicated; J44.1 Chronic obstructive pulmonary disease with (acute) exacerbation; J96.22 Acute and chronic respiratory failure with hypercapnia; F31.9 Bipolar disorder, unspecified; D63.8 Anemia in other chronic diseases classified elsewhere; K44.9 Diaphragmatic hernia without obstruction or gangrene; K27.9 Peptic ulcer, site unspecified, unspecified as acute or chronic, without hemorrhage or perforation; G89.4 Chronic pain syndrome; N31.9 Neuromuscular dysfunction of bladder, unspecified; M79.7 Fibromyalgia; I12.9 Hypertensive chronic kidney disease with stage 1 through stage 4 chronic kidney disease, or unspecified chronic kidney disease; N18.3 Chronic kidney disease, stage 3 (moderate); E87.70 Fluid overload, unspecified; E03.9 Hypothyroidism, unspecified; F25.9 Schizoaffective disorder, unspecified; G25.81 Restless legs syndrome; Z87.891 Personal history of nicotine dependence; Z68.34 Body mass index [BMI] 34.0-34.9, adult; Z79.4 Long term (current) use of insulin; Z22.1 Carrier of other intestinal infectious diseases; Z90.49 Acquired absence of other specified parts of digestive tract; Z90.710 Acquired absence of both cervix and uterus; Z79.01 Long term (current) use of anticoagulants; Z79.891 Long term (current) use of opiate analgesic; Z86.718 Personal history of other venous thrombosis and embolism; Z88.8 Allergy status to other drugs, medicaments and biological substances; Z91.010 Allergy to peanuts; Z88.1 Allergy status to other antibiotic agents; Z88.6 Allergy status to analgesic agent; Z88.5 Allergy status to narcotic agent; Z86.711 Personal history of pulmonary embolism
CPT/HCPCS: 36600; 71010; 80048; 80053; 80069; 82272; 82330; 82803; 82805; 82947; 82962; 83036; 83735; 83880; 84100; 84132; 84145; 84295; 84484; 85014; 85025; 87040; 87070; 87077; 87086; 87186; 87205; 87449; 87493; 87493-59; 87641; 93005; 94640; 94660; 96374; 99285; A9270-GY; J1120; J2930

== ENCOUNTER 2017-04-30 13:15 | Inpatient (IN) | payer MEDICARE, OTHER ==
--- NOTE | ~2017-04-30 | HP ---
History And Physical [place] [id number] [facility] [place]. [address] NAME: NANCY MACKAY : 52 STATUS : ADM IN [facility]#: [id number] AGE: 66 ADM/REG DATE : 04/30/17 MR#: [id number] REPORT SERV DATE: 04/30/17 DICTATED BY: PIERCE JEREZ DATE: 04/30/17 REPORT STATUS : Draft TRANSCRIBED BY: MODL DATE: 04/30/17 DATE OF ADMISSION: 04/30/2017 ADDENDUM: The addendum is that in the assessment one has to add: 1. Chronic diastolic heart failure and volume overload, for which she will be diuresed within the next 24 hours. 2. Remote history of DVT and PE, for which the patient is on chronic anticoagulation with Xarelto at home. 3. Remote history of atrial fibrillation; however, the patient is in sinus rhythm now. I am not sure if this patient has paroxysmal atrial fibrillation. Again, for both the above indications, the patient is already on Xarelto 20 mg at home and this will be continued while in the hospital. SHARATH/RUBA Pierce Jerez M.D. / [id number] CC: Pierce Jerez M.D.
--- NOTE | ~2017-04-30 | HP ---
History And Physical [address] [place]. [address] NAME: NANCY YUSUF : 52 STATUS : ADM IN [facility]#: [id number] AGE: 66 ADM/REG DATE : 04/30/17 MR#: [id number] REPORT SERV DATE: 04/30/17 DICTATED BY: PIERCE JEREZ DATE: 04/30/17 REPORT STATUS : Draft TRANSCRIBED BY: RUBA DATE: 04/30/17 DATE OF ADMISSION: 04/30/2017 HISTORY OF PRESENT ILLNESS: Ms. Yusuf is a 66-year-old female patient with known chronic hypoxic hypercapnic respiratory failure and dependent on Trilogy ventilator chronically, brought in by daughter because of increasing respiratory distress, not relieved with the Trilogy machine and also confusion and lethargy. Also, daughter says that her mother had been coughing with yellowish sputum production for the last few days also and this also may have worsened her respiratory distress according to the daughter. The daughter is not sure of fever. All the history was obtained from the daughter on the phone, because the patient herself is confused and lethargic at this time and is on BiPAP for respiratory support. This is a patient who has had many hospital admissions in the past for acute hypoxic hypercapnic respiratory failure. The patient does have obstructive sleep apnea, obesity- hypoventilation syndrome, chronic diastolic heart failure, and diabetes and is dependent on Trilogy at home chronically. She lives with her daughter. REVIEW OF SYSTEMS: The patient was barely able to answer a few of my questions, so at this time not fully available but the patient only complains of a headache, and other than that, no other complaints at this time. The patient is short of breath and is on BiPAP for respiratory support. PAST MEDICAL HISTORY: Significant for obstructive sleep apnea, obesity-hypoventilation syndrome, chronic hypoxic hypercapnic respiratory failure dependent on Trilogy, diabetes mellitus, obesity, chronic diastolic heart failure. SOCIAL HISTORY: Apparently, the patient does not smoke or drink any alcohol or do any illicit drugs. The patient lives with her daughter. FAMILY HISTORY: Noncontributory at this time. ALLERGIES: THE PATIENT IS ALLERGIC TO PEANUT BUTTER, BUTTER, ADHESIVE TAPE, SOME ANTIDEPRESSANTS, HALDOL, REGLAN, ROCEPHIN, OPIOIDS, PENICILLINS, SULFA, LITHIUM, PROPOXYPHENE, ASPIRIN, AND BACTRIM. THE PATIENT IS ALSO ALLERGIC TO AMITRIPTYLINE, FLUOXETINE, AND METHADONE. HOME MEDICATIONS: Include Requip 3 mg p.o. b.i.d., Linzess 290 mcg p.o. before breakfast, BuSpar 15 mg p.o. b.i.d., gabapentin 300 mg p.o. b.i.d., Lopressor 25 mg p.o. b.i.d., VESIcare 10 mg p.o. daily, Breo Ellipta one puff inhalation once a day, Seroquel 50 mg in the morning and 200 mg at bedtime, Carafate 1 g p.o. b.i.d., methenamine hippurate 1 g p.o. b.i.d., levothyroxine 88 mcg p.o. daily, Urispas 100 mg p.o. t.i.d., Movantik 25 mg p.o. daily, Singulair 10 mg p.o. daily, Xarelto 20 mg p.o. with supper, the indication which is unclear at this time, potassium chloride 10 mEq once a day, ProAir HFA two puffs inhalation three times a day, Dexilant 60 mg p.o. b.i.d., Cymbalta 90 mg p.o. daily, and Demodex 20 mg History And Physical [address] [address] NAME: NANCY YUSUF : 52 STATUS : ADM IN [facility]#: [id number] AGE: 66 ADM/REG DATE : 04/30/17 MR#: [id number] REPORT SERV DATE: 04/30/17 DICTATED BY: PIERCE JEREZ DATE: 04/30/17 REPORT STATUS : Draft TRANSCRIBED BY: RUBA DATE: 04/30/17 p.o. daily. PHYSICAL EXAMINATION: GENERAL: The patient is lethargic, confused, barely able to complete a sentence. She is unable to give me a good history and most history was gleaned from [email or web address], [employer], and also phone encounter with the daughter. VITAL SIGNS: At this time show that her blood pressure is 118/53, pulse is 70 per minute. The patient is afebrile. Oxygen saturation is 96% on 5 L, but this was when she came in. Her ABGs at this time most likely a venous sample shows the pO2 to be 60 and O2 sats to be actually 60% on BiPAP at this time. Again, as mentioned, this is most likely a venous sample, so we will repeat the ABG. SKIN AND MUCOUS MEMBRANES: Appear fairly well hydrated. HEENT: Unremarkable. The patient is obese and having difficulty breathing despite the BiPAP that she is wearing. NECK: Thick and stocky, but no JVD that I could appreciate. CARDIOVASCULAR SYSTEM: S1, S2 appreciated. Sinus rhythm. I could not appreciate any murmurs, rubs, or gallops. RESPIRATORY SYSTEM: Diminished breath sounds especially at both bases. Prolonged expiratory phase noted. The patient had a thick chest wall and it is difficult to appreciate any rales at this time. ABDOMEN: Obese, soft, nontender, nondistended. Bowel sounds are sluggish, but appreciated. No organomegaly noted. EXTREMITIES: There is no pedal edema. Pedal pulses are well felt. NEUROLOGIC: The patient is able to move all four extremities. MUSCULOSKELETAL: There is no acute swelling or warmth or redness in any of the major joints. PSYCHIATRIC: There is a history of bipolar disorder, but at this time, the patient is lethargic and a proper history cannot be obtained. LABORATORY DATA: Labs that I have on this patient include the following. CBC shows a WBC count of 16.3, hemoglobin 8.5, hematocrit 28.5, and platelet count of 228. Her INR is 1.8. Electrolytes are normal. BUN is 25, creatinine is 1.5. It appears the patient does have chronic kidney disease from diabetes. Glucose is 143, troponin-I is 0.14, mildly elevated likely because of demand ischemia. Portable chest x-ray shows very shallow inspiration with venous congestion and perihilar atelectasis, prior right upper lobe infiltrate has cleared up actually. However, when I looked at the images, because of shallow inspiration,maybe we are missing bilateral basal infiltrates in this patient, we do not know as the patient is coughing up yellowish sputum that I inspected myself. Her ABG which is likely a venous sample however shows pH of 7.3, pCO2 67, pO2 less than 60, bicarb 34.7, and O2 saturation 60% on BiPAP. We will repeat this. ASSESSMENT AND PLAN: Acute hypoxic hypercapnic respiratory failure in a patient whose code status is full code at this time. History And Physical [address] [place]. [address] NAME: NANCY YUSUF : 52 STATUS : ADM IN PAT#: [id number] AGE: 66 ADM/REG DATE : 04/30/17 MR#: [id number] REPORT SERV DATE: 04/30/17 DICTATED BY: PIERCE JEREZ DATE: 04/30/17 REPORT STATUS : Draft TRANSCRIBED BY: RUBA DATE: 04/30/17 Other chronic problems include; 1. Chronic hypoxic hypercapnic respiratory failure, Trilogy vent dependent. 2. Obesity-hypoventilation syndrome. 3. Obstructive sleep apnea. 4. Chronic diastolic heart failure. 5. Diabetes mellitus. 6. Chronic kidney disease, stage 3, with baseline creatinine around 1.4-1.5. 7. Bipolar disorder. 8. Insulin-requiring diabetes mellitus. 9. Multiple hospitalizations for acute hypercapnic hypoxic respiratory failure and encephalopathy and also history of intubation in the past also. PLAN: We will go ahead and the plan is to admit the patient to IMCU, and for all the above problems, start her on IV fluids, IV antibiotics to cover for likely bibasilar pneumonia, which may have triggered this problem, give her respiratory support with BiPAP at this time and we will avoid intubation as much as possible at this time. P.r.n. for agitation, we will give the patient Ativan at this time and we will try to hold off on the Precedex. We will keep her on her regular home medications and also keep her on the hypovolemic side as her cardiopulmonary status reserve is poor. I have consulted juvenile probation officer, Dr. Pacheco, who will help us manage her respiratory status. As mentioned above, the patient's status is full code, and after speaking with the daughter, if need be we may have to go ahead and put the patient on endotracheal intubation and ventilator support if need be only. For now, we will admit the patient to the IMCU and carefully watch. SHARATH/RUBA Pierce Jerez M.D. / [id number] CC: Pierce Jerez M.D.
--- NOTE | ~2017-04-30 | DS ---
Discharge Summary [facility] [address] [place]. [address] NAME: NANCY MACKAY : 52 STATUS : DIS IN PAT#: [id number] AGE: 66 ADM/REG DATE : 04/30/17 MR#: [id number] REPORT SERV DATE: 05/12/17 DICTATED BY: JEB FRY DATE: 05/11/17 REPORT STATUS : Draft TRANSCRIBED BY: MODL DATE: 05/11/17 ADMISSION DATE: 04/30/2017 DISCHARGE DATE: 05/11/2017 ADDENDUM: To the patient's discharge summary performed by Dr. Spencer Smith, job #[id number]. The patient was actually [facility]. Trilogy was discontinued. The patient was placed on BiPAP. This was discussed with [facility], who was able to accommodate for BiPAP, as the patient was able to maintain oxygen settings on BiPAP, whereas the patient's trilogy vendor, who evaluated, reported that she was having significant desaturations on trilogy machine, although this is not documented on chart. This was communicated to the assistant case manager, in which she was a bit of hypoxic in the 80s while on trilogy machine. The patient was significantly more improved while on BiPAP, although at times when she would remove her oxygen throughout the day, she did appear to have some effects with some times somnolence and disorientation, which quickly improved after she restarted oxygen again, what is consistent with her [id number]-[id number] respiratory failure, hypoxia, hypercapnia, and COPD. The patient discharged home with hospice under the care of her daughter. The patient is eager to return home. DICTATED BY: MD JENNIFER Stanley/RUBA Jeb Fry MD / [id number] CC: Jeb Fry MD
--- NOTE | ~2017-04-30 | CN ---
Consultation Report [facility] [address] [place]. [address] NAME: NANCY YUSUF : 52 STATUS : ADM IN [facility]#: [id number] AGE: 66 ADM/REG DATE : 04/30/17 MR#: [id number] REPORT SERV DATE: 04/30/17 DICTATED BY: JESICA PACHECO DATE: 04/30/17 REPORT STATUS : Draft TRANSCRIBED BY: MODAnia DATE: 04/30/17 PULMONARY CONSULT NOTE DATE OF CONSULTATION: 04/30/2017 REASON FOR CONSULTATION: Acute on chronic hypercapnic respiratory failure. CHIEF COMPLAINT: I cannot breathe. HISTORY OF PRESENT ILLNESS: Ms Yusuf is a 66-year-old female, well known to our service for underlying chronic hypercapnic respiratory failure secondary to severe COPD, chronic respiratory failure, and obesity hypoventilation syndrome with underlying atelectasis. The patient comes in with another event of shortness of breath. Upon reviewing her chest x-ray in the ER, she has atelectasis on the right side, but no new infiltrate. No significant changes, otherwise she has just increased work of breathing and tachypnea. She has home trilogy machine. In the ER, an arterial blood gas was checked, for which her pCO2 was 61 and her pH was 7.32. The patient currently does not have any chest pain, no fevers. Of note, her BNP has increased from 225 to around 700 of note. PAST MEDICAL HISTORY: Obesity hypoventilation syndrome, chronic respiratory failure with hypercapnia and hypoxia, chronic Trilogy use, severe COPD, narcotic dependence, anxiety, bipolar disorder, chronic kidney disease, gastroparesis, schizoaffective disorder, hypertension, fibromyalgia, restless legs syndrome. HOME MEDICATIONS: Home medication list reviewed, pulmonary medications include Breo, albuterol, Singulair. ALLERGIES: THE PATIENT HAS MULTIPLE DRUG ALLERGIES, CURRENTLY ON THE CHART. FAMILY HISTORY: No family history of lung disease. SOCIAL HISTORY: The patient has two children, her daughter was in the ER, however, by the time I came in she has stepped out. History of smoking. PHYSICAL EXAMINATION: VITAL SIGNS: Heart rate 74, oxygen saturation 100% on BiPAP therapy, blood pressure currently 140/63, temperature 98.1. GENERAL: The patient is sitting upright in the ER gurney. PULMONARY: Distant breath sounds bilaterally. Decreased inspiratory effort. CARDIAC: Regular rate, no murmurs. Otherwise, trace lower extremity edema. ABDOMEN: Soft, nontender, not distended. I did not hear any bowel sound. EXTREMITIES: Peripheral pulses noted in all extremities. NEUROLOGIC: The patient is able to move all extremities with no difficulty. Consultation Report [id number] [facility] [address] NAME: NANCY YUSUF : 52 STATUS : ADM IN PAT#: [id number] AGE: 66 ADM/REG DATE : 04/30/17 MR#: [id number] REPORT SERV DATE: 04/30/17 DICTATED BY: JESICA PACHECO DATE: 04/30/17 REPORT STATUS : Draft TRANSCRIBED BY: RUBA DATE: 04/30/17 LABORATORY EXAMINATION: White blood cell count 16.3, hemoglobin 8.5, and platelet count 228 with a mild left shift and INR 1.8. Kidney function is around 1.5. Creatinine with a bicarbonate of 39. Arterial blood gas shows a pH of 7.32 with a pCO2 of 67. On BiPAP therapy, the patient's pCO2 went down to 61. BNP as noted above has increased significantly. IMAGING DATA: Chest x-ray today is essentially unchanged from 04/19/2017, shallow inspiratory effort with probable atelectasis in the right lower lobe. ASSESSMENT AND PLAN: Ms Yusuf is a 66-year-old female with a past medical history well known to our service with workup for underlying chronic hypercapnic and hypoxic respiratory failure in the setting of chronic obstructive pulmonary disease and obesity hypoventilation with atelectasis and heart failure. Recommendations at this moment in time is to continue DuoNeb therapy. Continue Lasix, Pulmicort. Recommend starting inhaler therapies. Check BNP in the next 48 hours to ensure adequate diuresis. Goals of care: Unfortunately, this patient suffers from multiple comorbid diseases. She has a fine line of staying at home versus needing to be admitted. I, looking at her arterial blood gas today, she is essentially at baseline, but increased work of breathing, most likely from mild volume overload. We would recommend further diuretic therapy in addition to maximum pulmonary support with BiPAP therapy and inhaler therapy. I do not get a concern of an exacerbation of chronic obstructive pulmonary disease. With an elevated white count, however, the patient has been given antibiotics in the ER. Thank you very much for this consultation and allowing us to participate in your patient's care. In addition to the above concerns, we would also recommend checking troponins, as troponin has slightly increased. HFQ/MODL Jesica Pacheco MD / [id number] CC: Zoey Duncan M.D.
--- NOTE | ~2017-04-30 | DS ---
Discharge Summary [facility] [address] [place]. [address] NAME: NANCY MACKAY : 52 STATUS : ADM IN PAT#: [id number] AGE: 66 ADM/REG DATE : 04/30/17 MR#: [id number] REPORT SERV DATE: 05/07/17 DICTATED BY: Maricel MCCORMICK DATE: 05/07/17 REPORT STATUS : Draft TRANSCRIBED BY: MODL DATE: 05/07/17 ADMISSION DATE: 04/30/2017 DISCHARGE DATE: INTERIM SUMMARY DATE: 05/07/2017. DIAGNOSES AT TIME OF DISCHARGE: Ovcmv-dp-[id number] respiratory failure with hypoxia and hypercapnia, sleep apnea, chronic obstructive pulmonary disease, trilogy dependent at home, chronic diastolic heart failure, currently compensated, chronic kidney disease stage III, schizoaffective disorder, venous thromboembolism, on chronic Xarelto therapy. ACTIVE CONSULTS: None. PROCEDURES: None. BRIEF SUMMARY: A 66-year-old female patient with multiple admissions for end-stage pulmonary disease, recently [facility] roughly [facility]. The patient has a long history of being noncompliant with her medical therapy and trilogy use. Last admission, we did have palliative care see the patient and we did push for inpatient rehabilitation from a pulmonary standpoint, however the patient declined. After being home roughly a week, she was readmitted again with respiratory compromise. The patient quickly returned to her baseline and has been transitioned to [address] [place], [place] [address]etry. At this time, I have basically given her two options, if she is interested in improving her functional status and getting better, she must go to an inpatient facility for ongoing rehabilitation. However, if she is more interested and quality of life issues and insist on going home, the best support for her at home will be with one of the hospice agencies. After presenting with these two options, the patient is more in favor of going home with hospice as this being more in keeping with what her goals are. At the time of this dictation, we are making arrangements with [facility] for the patient to transition back to home with the assistance of their care, likely she has been weekend here for ongoing medical management at the logistics of her home with hospice with home trilogy BiPAP therapy can be arranged. She will continue her current medical therapy without significant change. We do strongly recommend that limit narcotic use in this patient as she quickly becomes over-sedated and hypercapnic. The patient's hospitalist care will be provided by another member of the team starting 05/08/2017, again with plans to transition home with hospice first of the week. DICTATED BY: Maricel Mccormick M.D. NJXiang/RUBA Maricel Mccormick M.D. Discharge Summary [address] [address] NAME: NANCY MACKAY : 52 STATUS : ADM IN PAT#: [id number] AGE: 66 ADM/REG DATE : 04/30/17 MR#: [id number] REPORT SERV DATE: 05/07/17 DICTATED BY: Maricel MCCORMICK DATE: 05/07/17 REPORT STATUS : Draft TRANSCRIBED BY: RUBA DATE: 05/07/17 / [id number] CC: Maricel Mccormick M.D.
--- NOTE | ~2017-04-30 | DS ---
Discharge Summary [facility] [address] [place]. [address] NAME: NANCY MACKAY : 52 STATUS : ADM IN PAT#: [id number] AGE: 66 ADM/REG DATE : 04/30/17 MR#: [id number] REPORT SERV DATE: 05/11/17 DICTATED BY: RENATO SMITH DATE: 05/10/17 REPORT STATUS : Draft TRANSCRIBED BY: MODL DATE: 05/10/17 ADMISSION DATE: 04/30/2017 DISCHARGE DATE: 05/10/2017 REASON FOR ADMISSION: Acute on chronic hypercapnic and hypoxic respiratory failure and acute on-chronic COPD exacerbation. HOSPITAL COURSE: From admission to 05/07/2017, please refer to Dr. Mccormick's interim summary. In brief, Dr. Mccormick had taken care of the patient in the [facility] for acute-on- chronic respiratory failure with hypoxia, hypercapnia, and COPD exacerbation. She is dependent on trilogy. Dr. Duncan had started the patient on IV antibiotics, inhalers, nebulizers, and BiPAP. She remained in the intermediate care unit for a while and then transferred to [address] [place] [address] under the care of Jodi Bellamy and Dr. Mccormick. Dr. Mccormick had lots of end of life discussions with her and it was felt that her best option would be to pursue hospice. The patient did state that her home trilogy machine was not working, and therefore, Madhavi with Home Health had come to the hospital and adjusted her settings. Hospital course from 05/08/2017 to present, I assumed care of this patient on 05/08/2017, Dr. Mccormick while she was on [address] [place] [address]. Madhavi to come to change the settings of her trilogy machine. She feels that it was not working and she knows that her oxygen level decreases because she has this weird feeling in her stomach. However, we have no documentation of any hypoxia whatsoever. She continues to be at her baseline nasal cannula use of 4 L, saturating well. Her COPD exacerbation has now resolved. There have been several different hospice agencies involved. We are currently looking at [facility] to see if they will take her on a trilogy machine, for which she has depended upon and if not, we have had [facility] meet with the patient. The patient is a DNR/DNI. She will be discharged today after hospice arrangements have been made. The patient chooses to not pursue hospice. After she leaves the hospital, she will have a very high rate of readmission. Dr. Mccormick had strongly recommended to limit the narcotic use in this patient, as she quickly becomes oversedated and hypercapnic. The patient will be discharged home in stable condition under the care of Hospice. DISCHARGE DIAGNOSES: Nhkpi-fq-ikzvggi hypoxemic and hypercapnic respiratory failure, now resolved; obstructive sleep apnea; chronic obstructive pulmonary disease with exacerbation, now resolved, dependent on trilogy at home; chronic diastolic heart failure, now compensated; CKD stage 3; schizoaffective disorder; venous thromboembolism chronic, on chronic Xarelto therapy. CONSULTANTS: None. PROCEDURES: None. DISCHARGE MEDICATIONS: Include Cymbalta 90 mg daily, Urispas 100 mg three times a day, gabapentin 300 mg twice a day, Synthroid 88 mcg daily, Linzess 290 mcg before breakfast, Singulair 10 mg once a day, Lopressor 25 mg twice a day, Movantik 25 mg once a day, Mycostatin, Dexilant 60 mg twice a day, Seroquel 50 mg at noon and then 200 mg at bedtime, Discharge Summary [address] [address] NAME: NANCY MACKAY : 52 STATUS : ADM IN [facility]#: [id number] AGE: 66 ADM/REG DATE : 04/30/17 MR#: [id number] REPORT SERV DATE: 05/11/17 DICTATED BY: RENATO SMITH DATE: 05/10/17 REPORT STATUS : Draft TRANSCRIBED BY: RUBA DATE: 05/10/17 Requip 3 mg twice a day, Xarelto 20 mg with supper, Carafate 1 g before meals and at bedtime, torsemide 20 mg once a day, ProAir daily, Incruse Ellipta one puff daily, BuSpar 15 mg twice a day, VESIcare 10 mg daily, Breo one puff daily. The patient will be discharged in stable condition with hospice to continue her trilogy. Spending over 30 minutes in discharge planning and coordination of care. DICTATED BY: MD ANN-MARIE Buenrostro/RUBA Renato Smith MD / [id number] CC: Renato Smith MD
[~2017-04-30 13:15] MED LIST changes: +ALBUTEROL0.083 % INH; +BREO ELLIPTA INH; +BUSPAR15 M1 PO; +INCRUSE ELLI62.5 MCG INH; +MOVANTIK25 MG PO; +PERCOCET 10/3251 TAB PO; +XARELTO20 MG PO
[2017-04-30 13:17] LABS: BASOPHILS 0.1 %; BASOPHILS ABSOLUTE 0.01 10/3/uL (0.0-0.16); EOSINOPHILS 0.1 %; EOSINOPHILS ABSOLUTE 0.01 10/3/uL (0.0-0.53); ER CBC TAT 0 Hrs 08 Mins; HEMATOCRIT 28.5 % (36.0-48.0); HEMOGLOBIN 8.5 g/dL (12.0-16.0); IMMATURE GRANULOCYTES 0.2 %; IMMATURE GRANULOCYTES ABSOLUTE 0.04 10/3/uL (0.0-0.11); LYMPHOCYTES 4.1 %; LYMPHOCYTES ABSOLUTE 0.66 10/3/uL (0.67-4.30); MANUAL DIFF NO %; MEAN CORPUS HGB CONC 29.8 g/dL (32.0-36.0); MEAN CORPUSCULAR HEMOGLOB 25.3 pg (26.0-34.0); MEAN CORPUSCULAR VOLUME 84.8 fL (80-100); MEAN PLATELET VOLUME 10.5 fL (9.2-13.0); MONOCYTES 3.5 %; MONOCYTES ABSOLUTE 0.57 10/3/uL (0.21-1.20); NEUTROPHILS ABSOLUTE 14.97 10/3/uL (2.02-8.40); PLATELET COUNT 228 10/3/uL (150-400); RBC DISTRIBUTION WIDTH 16.6 % (12.0-16.0); RED CELL COUNT 3.36 10/6/uL (4.0-5.6); WHITE BLOOD CELLS 16.3 10/3/uL (4.5-10.5)
[2017-04-30 13:25] LABS: INTERNATIONAL NORMAL RATI 1.8 UNITS (-); PARTIAL THROMBO TIME 40.7 SEC (22.5-37.2)
[2017-04-30 13:37] LABS: BUN (BLOOD UREA NITROGEN) 25 MG/DL (6-23); CHLORIDE, SERUM 99 MMOL/L (96-112); CO2 (CARBON DIOXIDE) 39 MMOL/L (24-34); GFR AFRICAN AMERICAN 42 ML/MIN (>=60); GFR NON AFRICAN AMERICAN 36 ML/MIN (>=60); SODIUM, SERUM 138 MMOL/L (135-148)
[2017-04-30 13:39] LABS: CALCIUM, SERUM 8.9 MG/DL (8.5-10.4); CHEST PAIN PROFILE TAT 0 Hrs 30 Mins; GLUCOSE, SERUM 143 MG/DL (60-99); TROPONIN I 0.14 NG/ML (<0.05)
[2017-04-30 16:28] LABS: BE (BASE EXCESS) 3.1 MEQ/L (0 +/- 2.5); BIPAP 16/6 cm.H2O; CARBOXYHEMOGLOBIN 1.1 % (0-3); HCO3 (ACTUAL BICARBONATE) 30.1 MEQ/L (23-27); HEMOBLOGIN CONTENT 9.4 G/DL (12-16); INSTRUMENT SERIAL # 8083; METHEMOGLOBIN 0.2 % (0-3); O2 CONTENT 12.8 VOL% (18-24); PCO2 (CO2 TENSION) 61 MMHG (35-45); PO2 (O2 TENSION) 97 MMHG (79-93); SAMPLE Arterial; pH 7.32 (7.37-7.43)
[2017-04-30 18:13] LABS: PROCALCITONIN 0.07 ng/mL (<0.5)
[2017-04-30 18:23] LABS: ASCORBIC ACID (UR NOT ORDER) NEG (NEG); BILIRUBIN, URINE NEGATIVE (NEG); KETONE, URINE NEGATIVE (NEG); LEUKOCYTE ESTERASE(NOT OR NEG (NEG); WBC (NOT ORDERED) (RFLEX) 4 (0-5)
[2017-05-01 05:17] LABS: BASOPHILS 0.1 %; BASOPHILS ABSOLUTE 0.01 10/3/uL (0.0-0.16); EOSINOPHILS 0 %; HEMOGLOBIN 7.5 g/dL (12.0-16.0); IMMATURE GRANULOCYTES 0.4 %; IMMATURE GRANULOCYTES ABSOLUTE 0.04 10/3/uL (0.0-0.11); LYMPHOCYTES 7.8 %; MEAN CORPUS HGB CONC 29.8 g/dL (32.0-36.0); MEAN CORPUSCULAR HEMOGLOB 24.5 pg (26.0-34.0); MEAN CORPUSCULAR VOLUME 82.4 fL (80-100); MEAN PLATELET VOLUME 10.4 fL (9.2-13.0); MONOCYTES 7.2 %; MONOCYTES ABSOLUTE 0.74 10/3/uL (0.21-1.20); NEUTROPHILS 84.5 %; NEUTROPHILS ABSOLUTE 8.69 10/3/uL (2.02-8.40); PLATELET COUNT 210 10/3/uL (150-400); RBC DISTRIBUTION WIDTH 16.5 % (12.0-16.0); RED CELL COUNT 3.06 10/6/uL (4.0-5.6); WHITE BLOOD CELLS 10.3 10/3/uL (4.5-10.5)
[2017-05-01 05:20] LABS: HEMATOCRIT 25.2 % (36.0-48.0); MANUAL DIFF NO %
[2017-05-01 05:29] LABS: A/G RATIO 0.8 (0.7-1.9); ALBUMIN 2.8 G/DL (3.5-5.0); ALKALINE PHOSPHATASE 67 U/L (45-117); BUN (BLOOD UREA NITROGEN) 22 MG/DL (6-23); CALCIUM, SERUM 8.7 MG/DL (8.5-10.4); CHLORIDE, SERUM 101 MMOL/L (96-112); CO2 (CARBON DIOXIDE) 38 MMOL/L (24-34); CREATININE 1.31 MG/DL (0.55-1.02); GFR AFRICAN AMERICAN 49 ML/MIN (>=60); GFR NON AFRICAN AMERICAN 43 ML/MIN (>=60); GLOBULIN 3.5 G/DL (2.5-4.1); GLUCOSE, SERUM 120 MG/DL (60-99); POTASSIUM, SERUM 3.4 MMOL/L (3.5-5.3); SGOT(AST) 9 U/L (5-40); SGPT(ALT) 21 U/L (5-65); SODIUM, SERUM 144 MMOL/L (135-148); TOTAL BILIRUBIN 0.6 MG/DL (0-1.2); TOTAL PROTEIN 6.3 G/DL (6.0-8.5); TROPONIN I 0.11 NG/ML (<0.05)
[2017-05-02 06:10] LABS: BASOPHILS 0.1 %; BASOPHILS ABSOLUTE 0.01 10/3/uL (0.0-0.16); EOSINOPHILS 0.4 %; EOSINOPHILS ABSOLUTE 0.03 10/3/uL (0.0-0.53); HEMATOCRIT 26.8 % (36.0-48.0); IMMATURE GRANULOCYTES 0.1 %; IMMATURE GRANULOCYTES ABSOLUTE 0.01 10/3/uL (0.0-0.11); LYMPHOCYTES 18.1 %; LYMPHOCYTES ABSOLUTE 1.48 10/3/uL (0.67-4.30); MEAN CORPUS HGB CONC 29.9 g/dL (32.0-36.0); MEAN CORPUSCULAR HEMOGLOB 24.8 pg (26.0-34.0); MEAN CORPUSCULAR VOLUME 83.2 fL (80-100); MEAN PLATELET VOLUME 9.9 fL (9.2-13.0); MONOCYTES 7.9 %; MONOCYTES ABSOLUTE 0.65 10/3/uL (0.21-1.20); NEUTROPHILS 73.4 %; PLATELET COUNT 205 10/3/uL (150-400); RBC DISTRIBUTION WIDTH 16.6 % (12.0-16.0); RED CELL COUNT 3.22 10/6/uL (4.0-5.6); WHITE BLOOD CELLS 8.2 10/3/uL (4.5-10.5)
[2017-05-02 06:11] LABS: MANUAL DIFF NO %
[2017-05-02 06:16] LABS: ALLENS TEST Pos; BE (BASE EXCESS) 12.1 MEQ/L (0 +/- 2.5); BIPAP 16/6 cm.H2O; HCO3 (ACTUAL BICARBONATE) 37.8 MEQ/L (23-27); HEMOBLOGIN CONTENT 8.7 G/DL (12-16); INSTRUMENT SERIAL # 8083; METHEMOGLOBIN 0.1 % (0-3); O2 CONTENT 11.4 VOL% (18-24); PCO2 (CO2 TENSION) 57 MMHG (35-45); PO2 (O2 TENSION) 72 MMHG (79-93); SAMPLE Arterial; pH 7.44 (7.37-7.43)
[2017-05-02 06:19] LABS: BUN (BLOOD UREA NITROGEN) 21 MG/DL (6-23); CALCIUM, SERUM 9.5 MG/DL (8.5-10.4); CHLORIDE, SERUM 99 MMOL/L (96-112); CREATININE 1.35 MG/DL (0.55-1.02); GFR AFRICAN AMERICAN 48 ML/MIN (>=60); GFR NON AFRICAN AMERICAN 41 ML/MIN (>=60); POTASSIUM, SERUM 3.2 MMOL/L (3.5-5.3); SODIUM, SERUM 141 MMOL/L (135-148)
[2017-05-02 06:22] LABS: CO2 (CARBON DIOXIDE) 42 MMOL/L (24-34); GLUCOSE, SERUM 78 MG/DL (60-99)
[2017-05-02 14:26] LABS: BE (BASE EXCESS) 14.1 MEQ/L (0 +/- 2.5); CARBOXYHEMOGLOBIN 0.7 % (0-3); HCO3 (ACTUAL BICARBONATE) 40.4 MEQ/L (23-27); HEMOBLOGIN CONTENT 8.9 G/DL (12-16); INSTRUMENT SERIAL # 8083; METHEMOGLOBIN 0.2 % (0-3); O2 CONTENT 11.5 VOL% (18-24); OPERATOR ID 14947; PCO2 (CO2 TENSION) 63 MMHG (35-45); PO2 (O2 TENSION) 64 MMHG (79-93); SAMPLE Arterial; pH 7.42 (7.37-7.43)
[2017-05-02 14:27] LABS: ALLENS TEST Pos
[2017-05-03 04:53] LABS: ALLENS TEST Pos; BIPAP 16/6 cm.H2O; CARBOXYHEMOGLOBIN 1.1 % (0-3); HCO3 (ACTUAL BICARBONATE) 38.4 MEQ/L (23-27); HEMOBLOGIN CONTENT 8.5 G/DL (12-16); INSTRUMENT SERIAL # 8083; METHEMOGLOBIN 0.3 % (0-3); PCO2 (CO2 TENSION) 63 MMHG (35-45); PO2 (O2 TENSION) 68 MMHG (79-93); SAMPLE Arterial
[2017-05-03 06:53] LABS: BASOPHILS 0.1 %; BASOPHILS ABSOLUTE 0.01 10/3/uL (0.0-0.16); EOSINOPHILS 0.7 %; EOSINOPHILS ABSOLUTE 0.05 10/3/uL (0.0-0.53); HEMATOCRIT 28.6 % (36.0-48.0); HEMOGLOBIN 8.5 g/dL (12.0-16.0); IMMATURE GRANULOCYTES 0.3 %; IMMATURE GRANULOCYTES ABSOLUTE 0.02 10/3/uL (0.0-0.11); MEAN CORPUS HGB CONC 29.7 g/dL (32.0-36.0); MEAN CORPUSCULAR HEMOGLOB 24.4 pg (26.0-34.0); MEAN CORPUSCULAR VOLUME 82.2 fL (80-100); MEAN PLATELET VOLUME 9.6 fL (9.2-13.0); MONOCYTES ABSOLUTE 0.72 10/3/uL (0.21-1.20); NEUTROPHILS 63.9 %; NEUTROPHILS ABSOLUTE 4.61 10/3/uL (2.02-8.40); PLATELET COUNT 206 10/3/uL (150-400); RBC DISTRIBUTION WIDTH 16.6 % (12.0-16.0); RED CELL COUNT 3.48 10/6/uL (4.0-5.6); WHITE BLOOD CELLS 7.2 10/3/uL (4.5-10.5)
[2017-05-03 07:02] LABS: BUN (BLOOD UREA NITROGEN) 18 MG/DL (6-23); CALCIUM, SERUM 9.4 MG/DL (8.5-10.4); CHLORIDE, SERUM 102 MMOL/L (96-112); GFR AFRICAN AMERICAN 55 ML/MIN (>=60); GFR NON AFRICAN AMERICAN 47 ML/MIN (>=60); POTASSIUM, SERUM 3.6 MMOL/L (3.5-5.3); SODIUM, SERUM 143 MMOL/L (135-148)
[2017-05-03 07:03] LABS: CO2 (CARBON DIOXIDE) 34 MMOL/L (24-34); GLUCOSE, SERUM 100 MG/DL (60-99)
[2017-05-03 07:04] LABS: MANUAL DIFF NO %
[2017-05-04 04:21] LABS: BASOPHILS 0.1 %; BASOPHILS ABSOLUTE 0.01 10/3/uL (0.0-0.16); EOSINOPHILS 0.8 %; EOSINOPHILS ABSOLUTE 0.06 10/3/uL (0.0-0.53); HEMATOCRIT 27.3 % (36.0-48.0); HEMOGLOBIN 8.2 g/dL (12.0-16.0); IMMATURE GRANULOCYTES 0.4 %; IMMATURE GRANULOCYTES ABSOLUTE 0.03 10/3/uL (0.0-0.11); LYMPHOCYTES 21.6 %; LYMPHOCYTES ABSOLUTE 1.68 10/3/uL (0.67-4.30); MEAN CORPUSCULAR HEMOGLOB 24.8 pg (26.0-34.0); MEAN CORPUSCULAR VOLUME 82.5 fL (80-100); MEAN PLATELET VOLUME 9.8 fL (9.2-13.0); MONOCYTES 7.4 %; MONOCYTES ABSOLUTE 0.58 10/3/uL (0.21-1.20); NEUTROPHILS 69.7 %; NEUTROPHILS ABSOLUTE 5.43 10/3/uL (2.02-8.40); PLATELET COUNT 232 10/3/uL (150-400); RBC DISTRIBUTION WIDTH 16.4 % (12.0-16.0); RED CELL COUNT 3.31 10/6/uL (4.0-5.6); WHITE BLOOD CELLS 7.8 10/3/uL (4.5-10.5)
[2017-05-04 04:22] LABS: MANUAL DIFF NO %
[2017-05-04 04:29] LABS: BUN (BLOOD UREA NITROGEN) 17 MG/DL (6-23); CALCIUM, SERUM 9.7 MG/DL (8.5-10.4); CHLORIDE, SERUM 98 MMOL/L (96-112); CO2 (CARBON DIOXIDE) 36 MMOL/L (24-34); CREATININE 1.18 MG/DL (0.55-1.02); GFR AFRICAN AMERICAN 56 ML/MIN (>=60); GFR NON AFRICAN AMERICAN 48 ML/MIN (>=60); GLUCOSE, SERUM 75 MG/DL (60-99); POTASSIUM, SERUM 3.7 MMOL/L (3.5-5.3); SODIUM, SERUM 138 MMOL/L (135-148)
[2017-05-05 06:43] LABS: BASOPHILS 0.1 %; BASOPHILS ABSOLUTE 0.01 10/3/uL (0.0-0.16); EOSINOPHILS ABSOLUTE 0.09 10/3/uL (0.0-0.53); IMMATURE GRANULOCYTES 0.1 %; IMMATURE GRANULOCYTES ABSOLUTE 0.01 10/3/uL (0.0-0.11); LYMPHOCYTES 19.4 %; LYMPHOCYTES ABSOLUTE 1.68 10/3/uL (0.67-4.30); MEAN CORPUS HGB CONC 29.9 g/dL (32.0-36.0); MEAN CORPUSCULAR HEMOGLOB 24.5 pg (26.0-34.0); MEAN PLATELET VOLUME 10.3 fL (9.2-13.0); MONOCYTES 6.5 %; MONOCYTES ABSOLUTE 0.56 10/3/uL (0.21-1.20); NEUTROPHILS 72.9 %; NEUTROPHILS ABSOLUTE 6.33 10/3/uL (2.02-8.40); PLATELET COUNT 239 10/3/uL (150-400); RBC DISTRIBUTION WIDTH 16.2 % (12.0-16.0); RED CELL COUNT 3.67 10/6/uL (4.0-5.6); WHITE BLOOD CELLS 8.7 10/3/uL (4.5-10.5)
[2017-05-05 06:44] LABS: HEMATOCRIT 30.1 % (36.0-48.0); MANUAL DIFF NO %
[2017-05-05 06:55] LABS: BUN (BLOOD UREA NITROGEN) 14 MG/DL (6-23); CALCIUM, SERUM 9.6 MG/DL (8.5-10.4); CHLORIDE, SERUM 99 MMOL/L (96-112); CO2 (CARBON DIOXIDE) 36 MMOL/L (24-34); GFR AFRICAN AMERICAN 55 ML/MIN (>=60); GFR NON AFRICAN AMERICAN 47 ML/MIN (>=60); GLUCOSE, SERUM 94 MG/DL (60-99); PHOSPHORUS, SERUM 3.2 MG/DL (2.5-4.5); POTASSIUM, SERUM 3.1 MMOL/L (3.5-5.3); SODIUM, SERUM 139 MMOL/L (135-148); TROPONIN I 0.05 NG/ML (<0.05)
[2017-05-06 03:58] LABS: ALLENS TEST Pos; BE (BASE EXCESS) 9.8 MEQ/L (0 +/- 2.5); BIPAP 16/6 cm.H2O; CARBOXYHEMOGLOBIN 0.7 % (0-3); HEMOBLOGIN CONTENT 8.5 G/DL (12-16); INSTRUMENT SERIAL # 35151; METHEMOGLOBIN 0.7 % (0-3); O2 CONTENT 9.9 VOL% (18-24); OPERATOR ID 30014; PCO2 (CO2 TENSION) 70 MMHG (35-45); PO2 (O2 TENSION) 52 MMHG (79-93); SAMPLE Arterial; pH 7.34 (7.37-7.43)
[2017-05-06 04:39] LABS: BE (BASE EXCESS) 11.4 MEQ/L (0 +/- 2.5); CARBOXYHEMOGLOBIN 0.9 % (0-3); HCO3 (ACTUAL BICARBONATE) 38.4 MEQ/L (23-27); HEMOBLOGIN CONTENT 8.9 G/DL (12-16); INSTRUMENT SERIAL # 8083; METHEMOGLOBIN 0.4 % (0-3); O2 CONTENT 11.7 VOL% (18-24); OPERATOR ID 30014; PCO2 (CO2 TENSION) 68 MMHG (35-45); PO2 (O2 TENSION) 75 MMHG (79-93); SAMPLE Arterial; pH 7.37 (7.37-7.43)
[2017-05-06 04:40] LABS: ALLENS TEST Pos; BIPAP 16/6 cm.H2O
[2017-05-06 06:32] LABS: BASOPHILS 0.1 %; BASOPHILS ABSOLUTE 0.01 10/3/uL (0.0-0.16); EOSINOPHILS 1.7 %; EOSINOPHILS ABSOLUTE 0.14 10/3/uL (0.0-0.53); HEMATOCRIT 28.3 % (36.0-48.0); HEMOGLOBIN 8.4 g/dL (12.0-16.0); IMMATURE GRANULOCYTES 0.2 %; IMMATURE GRANULOCYTES ABSOLUTE 0.02 10/3/uL (0.0-0.11); LYMPHOCYTES 20.5 %; MEAN CORPUS HGB CONC 29.7 g/dL (32.0-36.0); MEAN CORPUSCULAR HEMOGLOB 24.3 pg (26.0-34.0); MEAN CORPUSCULAR VOLUME 81.8 fL (80-100); MONOCYTES 7.1 %; MONOCYTES ABSOLUTE 0.59 10/3/uL (0.21-1.20); NEUTROPHILS 70.4 %; NEUTROPHILS ABSOLUTE 5.83 10/3/uL (2.02-8.40); PLATELET COUNT 219 10/3/uL (150-400); RBC DISTRIBUTION WIDTH 16.4 % (12.0-16.0); RED CELL COUNT 3.46 10/6/uL (4.0-5.6); WHITE BLOOD CELLS 8.3 10/3/uL (4.5-10.5)
[2017-05-06 06:37] LABS: MANUAL DIFF NO %
[2017-05-06 06:45] LABS: CALCIUM, SERUM 9.5 MG/DL (8.5-10.4); CHLORIDE, SERUM 99 MMOL/L (96-112); CO2 (CARBON DIOXIDE) 36 MMOL/L (24-34); CREATININE 1.15 MG/DL (0.55-1.02); GFR AFRICAN AMERICAN 58 ML/MIN (>=60); GFR NON AFRICAN AMERICAN 50 ML/MIN (>=60); GLUCOSE, SERUM 91 MG/DL (60-99); POTASSIUM, SERUM 3.5 MMOL/L (3.5-5.3); SODIUM, SERUM 139 MMOL/L (135-148)
[2017-05-06 06:46] LABS: BUN (BLOOD UREA NITROGEN) 10 MG/DL (6-23)
[2017-05-07 10:16] LABS: BUN (BLOOD UREA NITROGEN) 8 MG/DL (6-23); CALCIUM, SERUM 9.9 MG/DL (8.5-10.4); CHLORIDE, SERUM 98 MMOL/L (96-112); CO2 (CARBON DIOXIDE) 35 MMOL/L (24-34); CREATININE 1.17 MG/DL (0.55-1.02); GFR AFRICAN AMERICAN 57 ML/MIN (>=60); GFR NON AFRICAN AMERICAN 49 ML/MIN (>=60); GLUCOSE, SERUM 104 MG/DL (60-99); POTASSIUM, SERUM 3.5 MMOL/L (3.5-5.3); SODIUM, SERUM 139 MMOL/L (135-148)
[2017-05-08 07:10] LABS: BASOPHILS 0.2 %; BASOPHILS ABSOLUTE 0.02 10/3/uL (0.0-0.16); EOSINOPHILS 1.1 %; EOSINOPHILS ABSOLUTE 0.12 10/3/uL (0.0-0.53); HEMATOCRIT 31.1 % (36.0-48.0); HEMOGLOBIN 9.2 g/dL (12.0-16.0); IMMATURE GRANULOCYTES 0.3 %; IMMATURE GRANULOCYTES ABSOLUTE 0.03 10/3/uL (0.0-0.11); LYMPHOCYTES 21.8 %; LYMPHOCYTES ABSOLUTE 2.28 10/3/uL (0.67-4.30); MEAN CORPUS HGB CONC 29.6 g/dL (32.0-36.0); MEAN CORPUSCULAR HEMOGLOB 24.5 pg (26.0-34.0); MEAN CORPUSCULAR VOLUME 82.7 fL (80-100); MEAN PLATELET VOLUME 10.5 fL (9.2-13.0); MONOCYTES 6.7 %; NEUTROPHILS 69.9 %; PLATELET COUNT 239 10/3/uL (150-400); RBC DISTRIBUTION WIDTH 16.1 % (12.0-16.0); RED CELL COUNT 3.76 10/6/uL (4.0-5.6); WHITE BLOOD CELLS 10.5 10/3/uL (4.5-10.5)
[2017-05-08 07:13] LABS: MANUAL DIFF NO %
[2017-05-08 07:21] LABS: BUN (BLOOD UREA NITROGEN) 11 MG/DL (6-23); CALCIUM, SERUM 9.3 MG/DL (8.5-10.4); CHLORIDE, SERUM 98 MMOL/L (96-112); CO2 (CARBON DIOXIDE) 35 MMOL/L (24-34); CREATININE 1.53 MG/DL (0.55-1.02); GFR AFRICAN AMERICAN 41 ML/MIN (>=60); GFR NON AFRICAN AMERICAN 35 ML/MIN (>=60); GLUCOSE, SERUM 103 MG/DL (60-99); POTASSIUM, SERUM 3.7 MMOL/L (3.5-5.3); SODIUM, SERUM 140 MMOL/L (135-148)
== END 2017-05-11 15:42 | DRG 208 ==
LOC: ER 13:15 → IMCU 14:53 → 2SO 05-04 16:38
PROVIDERS: Emergency Medicine; Internal Medicine; Nurse Practitioner
PROC: 0BH18EZ Insertion of Endotracheal Airway into Trachea, Via Natural or Artificial Opening Endoscopic (ICD-10-PCS; principal; 2017-04-30)
PROC: 5A1945Z Respiratory Ventilation, 24-96 Consecutive Hours (ICD-10-PCS; 2017-04-30)
DX: J96.22 Acute and chronic respiratory failure with hypercapnia (principal); G93.41 Metabolic encephalopathy; I50.33 Acute on chronic diastolic (congestive) heart failure; A04.7 Enterocolitis due to Clostridium difficile; J44.1 Chronic obstructive pulmonary disease with (acute) exacerbation; E11.43 Type 2 diabetes mellitus with diabetic autonomic (poly)neuropathy; K31.84 Gastroparesis; E66.2 Morbid (severe) obesity with alveolar hypoventilation; J98.11 Atelectasis; I82.599 Chronic embolism and thrombosis of other specified deep vein of unspecified lower extremity; F11.20 Opioid dependence, uncomplicated; J96.21 Acute and chronic respiratory failure with hypoxia; F41.9 Anxiety disorder, unspecified; Z66 Do not resuscitate; N18.3 Chronic kidney disease, stage 3 (moderate); F31.9 Bipolar disorder, unspecified; G25.81 Restless legs syndrome; M79.7 Fibromyalgia; E87.6 Hypokalemia; Z51.5 Encounter for palliative care; F20.9 Schizophrenia, unspecified; I36.1 Nonrheumatic tricuspid (valve) insufficiency; E83.42 Hypomagnesemia; Z91.19 Patient's noncompliance with other medical treatment and regimen; Z86.718 Personal history of other venous thrombosis and embolism; Z86.711 Personal history of pulmonary embolism; Z79.01 Long term (current) use of anticoagulants
CPT/HCPCS: 36600; 71010; 80048; 80053; 81001; 82330; 82803; 82805; 82947; 82962; 83605; 83735; 83880; 84100; 84132; 84145; 84295; 84484; 85014; 85025; 85610; 85730; 87040; 87070; 87205; 87449; 87493; 87493-59; 87641; 93005; 94640; 94660; 96374; 97110-GP; 97116-GP; 97161-GP; 97530-GP; 99291; A9270-GY; C8929; G8978-CK-GP; G8979-CJ-GP; J0456; J1170; J2405; J2930; J3475; Q9957